=== PATIENT | female | born 1985 | race Two or more races ===

== ENCOUNTER 2018-03-11 14:44 | Emergency (ER) | payer MEDICAID ==
[~2018-03-11] VITALS: Ht 152.4 cm; Wt 54.4 kg
[~2018-03-11 14:44] MED LIST: LEVO25TA9 PO
[2018-03-11 14:49] VITALS: BP 105/69
== END 2018-03-11 16:43 | disposition home or self-care (01) ==
LOC: ER 14:48
DX: J40 Bronchitis, not specified as acute or chronic (principal)
CPT/HCPCS: 71045-TC; A4606; Z7610

== ENCOUNTER 2019-06-26 08:15 | Emergency (ER) | payer MEDICAID ==
[~2019-06-26] VITALS: Ht 149.9 cm; Wt 52.2 kg
--- NOTE | 2019-06-26 08:36 | NUR ---
THE PATIENT ALERT, ORIENTED TO #3, tHE DR AT THE BED SIDE. PT IS COMPLAINING TO MID ABD REDIATING TO THE BACK. HAS VOMITING LAST 2 HRS AGO. PAIN LEVEL 10.
[2019-06-26 08:53] LABS: BASOPHILS % (AUTO) 0.3 % (0.0-2.0); EOSINOPHILS % (AUTO) 1.4 % (0.0-6.0); HEMATOCRIT 36 % (33-45); LYMPHOCYTES # (AUTO) 0.8 /CMM (0.8-4.8); LYMPHOCYTES % (AUTO) 15.6 % (20.0-44.0); MEAN CORPUSCULAR HGB CONC 34 g/dl (31.0-36.0); MEAN CORPUSCULAR VOLUME 92 fL (82-100); MONOCYTES # (AUTO) 0.4 /CMM (0.1-1.30); MONOCYTES % (AUTO) 7.6 % (2.0-12.0); NEUTROPHILS # (AUTO) 3.8 /CMM (1.8-8.9); NEUTROPHILS % (AUTO) 75.1 % (43.0-81.0); PLATELET COUNT (AUTO) 252 /CMM (150-450); RED BLOOD CELL COUNT(AUTO) 3.87 MIL/uL (4.0-5.2); WHITE BLOOD COUNT (AUTO) 5.1 K/uL (4.3-11.0)
[2019-06-26 08:58] LABS: CREATININE 0.7 mg/dL (0.6-1.3); POTASSIUM 3.3 mmol/L (3.5-5.1)
[2019-06-26] MEDS ORDERED: ONDANSETRON HCL/PF 4 MG/2 ML VIAL IVP ONE (09:00)
[2019-06-26] MEDS ORDERED: MAG HYDROX/AL HYDROX/SIMETH 30 ML UDC PO ONE (09:00)
[2019-06-26] MEDS ORDERED: FAMOTIDINE/PF INJ 20 MG/2 ML VIAL IV ONE ×2 (09:00→09:05)
[2019-06-26] MEDS ORDERED: MAG HYDROX/AL HYDROX/SIMETH 30 ML UDC ONE (09:08)
[2019-06-26] MEDS ORDERED: ONDANSETRON HCL/PF 4 MG/2 ML VIAL ONE (09:09)
[2019-06-26 10:09] VITALS: BP 123/78
--- NOTE | 2019-06-26 10:28 | NUR ---
DC HOME INTRUCTION GIVEN AGREES TO CALL PMD IN 2 DAYS VERBALIZED UNDERSTANDING
== END 2019-06-26 10:27 | disposition home or self-care (01) ==
LOC: ER 08:15
DX: R10.13 Epigastric pain (principal); K21.9 Gastro-esophageal reflux disease without esophagitis; E05.90 Thyrotoxicosis, unspecified without thyrotoxic crisis or storm; Z60.2 Problems related to living alone; Z79.899 Other long term (current) drug therapy
CPT/HCPCS: 36415; 76705; 80048; 83690; 85025; 93005; 96374; 96375; 99284; J2405; J3490

== ENCOUNTER 2021-06-06 16:59 | Emergency (ER) | payer MEDICAID ==
[~2021-06-06] VITALS: Ht 149.9 cm; Wt 50.8 kg
[2021-06-06 18:01] VITALS: BP 100/61
--- NOTE | 2021-06-06 18:01 | NUR ---
BIB SELF C/O L EAR PAIN X 3 DAYS. RATES PAIN 5/10. THE PATIENT DENIES CHANGE IN HEARING. IN ROOM AIR AND DENIES SOB. RESPIRATION REGULAR AND UNLABORED. WILL CONTINUE TO MONITOR THE PATIENT.
[2021-06-06] MEDS ORDERED: NEOM10DR11 OT (18:13)
--- NOTE | 2021-06-06 18:35 | NUR ---
Patient discharged to home in stable condition. Written and verbal after care instructions given. Patient verbalizes understanding of instruction.
== END 2021-06-06 18:35 | disposition home or self-care (01) ==
LOC: ER 16:59
DX: H60.92 Unspecified otitis externa, left ear (principal); K21.9 Gastro-esophageal reflux disease without esophagitis; E03.9 Hypothyroidism, unspecified; Z60.2 Problems related to living alone; Z79.899 Other long term (current) drug therapy

== ENCOUNTER 2022-04-06 15:33 | Emergency (ER) | payer MEDICAID ==
[~2022-04-06] VITALS: Ht 149.9 cm; Wt 52.2 kg
[~2022-04-06 15:33] MED LIST changes: +NEOM10DR11 OT
--- NOTE | 2022-04-06 16:10 | NUR ---
BIBS, c/o ab pain, given md orders to treat, educated and explained treatment and detailed info
--- NOTE | 2022-04-06 16:11 | NUR ---
md orders for pain medication, took po Effective
--- NOTE | 2022-04-06 16:11 | NUR ---
pt able to ambulate steady gait, stable, provided void x2 for urine specimen.
--- NOTE | 2022-04-06 16:11 | NUR ---
MD orders to D/C, pt will go home, stable condition, able to ambulate on own, educated on importance of hydration and self care , pt had understanding
[2022-04-06] MEDS ORDERED: LORAZEPAM 1 MG TABLET PO ONE (16:30)
[2022-04-06] MEDS ORDERED: LORAZEPAM 1 MG TABLET ONE (16:30)
[2022-04-06 16:36] LABS: BASOPHILS % (AUTO) 0.3 % (0.0-2.0); EOSINOPHILS % (AUTO) 1.3 % (0.0-6.0); HEMATOCRIT 35 % (33-45); HEMOGLOBIN 11.4 g/dL (11.5-14.8); LYMPHOCYTES % (AUTO) 31.6 % (20.0-44.0); MEAN CORPUSCULAR HGB CONC 33 g/dl (31.0-36.0); MEAN CORPUSCULAR VOLUME 86 fL (82-100); MONOCYTES # (AUTO) 0.7 K/uL (0.1-1.30); MONOCYTES % (AUTO) 10.3 % (2.0-12.0); NEUTROPHILS # (AUTO) 3.6 K/uL (1.8-8.9); NEUTROPHILS % (AUTO) 56.5 % (43.0-81.0); PLATELET COUNT (AUTO) 272 K/uL (150-450); RED BLOOD CELL COUNT(AUTO) 4.01 MIL/uL (4.0-5.2); WHITE BLOOD COUNT (AUTO) 6.4 K/uL (4.3-11.0)
[2022-04-06 17:02] LABS: THYROID STIMULATING HORMONE 0.02 uIU/mL (0.358-3.74)
[2022-04-06 17:04] LABS: CALCIUM, SERUM 8.5 mg/dL (8.5-10.1); CREATININE 0.7 mg/dL (0.6-1.3); POTASSIUM 3.4 mmol/L (3.5-5.1)
[2022-04-06 17:10] LABS: ALBUMIN 3.8 g/dL (3.4-5.0); BILIRUBIN,TOTAL 0.2 mg/dL (0.2-1.0); MAGNESIUM 2.2 mg/dL (1.8-2.4); TOTAL PROTEIN, SERUM 7.7 g/dL (6.4-8.2)
--- NOTE | 2022-04-06 17:51 | NUR ---
Patient discharged to home in stable condition. Written and verbal after care instructions given. Patient verbalizes understanding of instruction.
[2022-04-06 17:54] VITALS: BP 103/62
== END 2022-04-06 17:54 | disposition home or self-care (01) ==
LOC: ER 15:35
DX: F41.9 Anxiety disorder, unspecified (principal); E03.9 Hypothyroidism, unspecified; K21.9 Gastro-esophageal reflux disease without esophagitis; Z60.2 Problems related to living alone; Z79.899 Other long term (current) drug therapy
CPT/HCPCS: 36415; 80053-TC; 83735-TC; 84443-TC; 85025-TC